=== PATIENT | male | born 1955 | race Caucasian/White ===

== ENCOUNTER → 2016-12-20 | Outpatient (CLI) | payer BC | END | disposition home or self-care (01) | LOC: GMAL 11:44 | PROVIDERS: ATTEND Family Medicine | DX: D51.3 Other dietary vitamin B12 deficiency anemia (principal); E55.9 Vitamin D deficiency, unspecified ==

== ENCOUNTER → 2017-06-23 | Outpatient (CLI) | payer BC | END | disposition home or self-care (01) | LOC: GMAJ 10:31 | PROVIDERS: ATTEND Family Medicine | DX: D51.3 Other dietary vitamin B12 deficiency anemia (principal); Z12.5 Encounter for screening for malignant neoplasm of prostate | CPT/HCPCS: 82607; G0103 ==

== ENCOUNTER → 2018-06-21 | Outpatient (CLI) | payer BC | LOC: GMAL 11:24 | PROVIDERS: ATTEND Family Medicine | DX: E55.9 Vitamin D deficiency, unspecified (principal); Z12.5 Encounter for screening for malignant neoplasm of prostate ==

== ENCOUNTER 2019-06-26 17:00 | Emergency (ER) | payer MEDICARE ==
[2019-06-26 17:32] VITALS: O2SAT 94
--- NOTE | 2019-06-26 18:35 | ED.PDOC ---
History of Present Illness - General Chief Complaint: Problem Stated Complaint: difficulty urinating Time Seen by Provider: 06/26/19 17:31 Source: patient Exam Limitations: no limitations - History of Present Illness Initial Comments: 63 yo M with PMH sig for BPH who presents for urinary retention onset this am, associated lower abd fullness. States he has the urge to urinate however every time he goes to the bathroom he cannot urinate. Pt has had hx of sx. Denies any f/c, CP, SOB, abd pain, back pain, flank pain, hematuria, dysuria. Allergies/Adverse Reactions: Allergies NO KNOWN ALLERGY Allergy (Unverified 11/02/13 11:11) Home Medications: Ambulatory Orders Atorvastatin Calcium [Lipitor] 20 mg PO DAILY 11/05/13 Bisoprolol & Hydrochlorothiazi [Ziac] 1 tab PO DAILY 11/05/13 RX: Terazosin [Hytrin] 1 mg PO BEDTIME #7 cap 08/11/14 Review of Systems - Review of Systems Constitutional: Denies: chills, fever Cardiology: Denies: chest pain, syncope Gastrointestinal/Abdominal: States: other - Suprapubic fullness. Denies: abdominal pain, diarrhea, nausea, vomiting Genitourinary: States: other - retention. Denies: dysuria, hematuria Musculoskeletal: Denies: back pain Neurological: Denies: numbness, weakness Past Medical History (General) - Patient Medical History Hx Seizures: No Hx Stroke: No Hx Dementia: No Hx Asthma: No Hx of COPD: No Hx Cardiac Disorders: No Hx Congestive Heart Failure: No Hx Pacemaker: No Hx Hypertension: Yes Hx Thyroid Disease: No Hx Diabetes: No Hx Gastroesophageal Reflux: No Hx Renal Disease: No Hx Cancer: No Hx of HIV: No Hx Hepatitis C: No Hx MRSA: No Surgical History: no surgical history - Vaccination History Hx Influenza Vaccination: No Hx Pneumococcal Vaccination: No - Social History Hx Tobacco Use: No Hx Alcohol Use: No Hx Substance Use: No Hx Substance Use Treatment: No Hx Depression: No Family Medical History - Family History Father Living Status: Still Living Physical Exam - Physical Exam General Appearance: Alert, Comfortable, Well Developed, Well Nourished, Other - Appears uncomfortable Neck: full range of motion, supple Cardiovascular/Respiratory: no M/R/G, normal peripheral pulses, no JVD, normal breath sounds, no respiratory distress, tachycardia Gastrointestinal/Abdominal: normal bowel sounds, non tender, soft, no organomegaly, other - suprapubic discomfort. no guarding, rebound, distention. 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 Pt states he is feeling much better. Catheter left in place. Abd benign, NT. I have explained and reviewed all results with the pt. I explained that emergent conditions may arise and to return to the ER for new, worsening, or any persistent conditions. I've explained the importance of f/u for recheck. All questions and concerns addressed at this time. Pt understands and agrees with plan. Pt well appearing, NAD, is stable for discharge. Kassidy Aviles MD Emergency Medicine Physician Billing Number [id number] - Results/Orders Results/Orders: Laboratory Results - last 24 hr 06/26/19 18:08 Urine Color Yellow Urine Appearance Clear Urine pH 7.0 Ur Specific [place] 1.020 Urine Protein Negative Urine Glucose (UA) Negative Urine Ketones Negative Urine Blood Trace-intact H Urine Nitrite Negative Urine Bilirubin Negative Urine Urobilinogen 0.2 Ur Leukocyte Esterase Negative Urine RBC 1-3 Urine WBC 0 Ur Epithelial Cells 0-1 Urine Bacteria 0 Vital Signs - 24 hr 06/26/19 06/26/19 17:30 18:53 Temperature 97.8 F 97.7 F Pulse Rate [ 121 H 102 H Left Brachial] Respiratory 20 20 Rate Blood Pressure 142/88 121/77 [Left Arm] O2 Sat by Pulse 94 L 94 L Oximetry Departure - Departure Clinical Impression: Acute urinary retention Time of Disposition: 18:33 Disposition: Discharge to Home or Self Care Health Concerns: condition: stable Departure Forms: ED Discharge - Pt. Copy, Patient Portal Self Enrollment Instructions: DI for Urinary Retention in Men Referrals: David Bates III, MD [Primary Care Provider] - 1-2 Days EMANUEL ROUSE MD [Consulting Staff] - 1-2 Days Home Medications: Ambulatory Orders Atorvastatin Calcium [Lipitor] 20 mg PO DAILY 11/05/13 Bisoprolol & Hydrochlorothiazi [Ziac] 1 tab PO DAILY 11/05/13 RX: Terazosin [Hytrin] 1 mg PO BEDTIME #7 cap 08/11/14 Comments: Follow up: [facility] As needed, if symptoms worsen
[2019-06-26 18:54] VITALS: BP 121/77; TEMP 97.7
== END 2019-06-26 18:54 | disposition home or self-care (01) ==
LOC: ER 17:00
DX: N40.1 Benign prostatic hyperplasia with lower urinary tract symptoms (principal); R33.9 Retention of urine, unspecified; I10 Essential (primary) hypertension; Z79.899 Other long term (current) drug therapy

== ENCOUNTER → 2019-12-17 | Outpatient (CLI) | payer MEDICARE | LOC: GMAL 11:27 | PROVIDERS: ATTEND Family Medicine | DX: D51.3 Other dietary vitamin B12 deficiency anemia (principal); I10 Essential (primary) hypertension; Z12.5 Encounter for screening for malignant neoplasm of prostate; R73.9 Hyperglycemia, unspecified; R53.83 Other fatigue; E55.9 Vitamin D deficiency, unspecified | CPT/HCPCS: 82306; 82607; 84443; G0103 ==

== ENCOUNTER → 2020-08-05 | Outpatient (CLI) | payer MEDICARE | LOC: GMAL 10:51 | PROVIDERS: ATTEND Family Medicine | DX: D51.3 Other dietary vitamin B12 deficiency anemia (principal); E55.9 Vitamin D deficiency, unspecified; R53.83 Other fatigue; R73.9 Hyperglycemia, unspecified; Z79.899 Other long term (current) drug therapy; E78.49 Other hyperlipidemia ==